=== PATIENT | male | born 1940 | race Hispanic/Latino ===

== ENCOUNTER 2017-12-21 13:53 | Emergency (ER) | payer BC ==
[2017-12-21] MEDS ORDERED: Sodium Chloride 0.9% 1,000 ML IV SCH (14:00)
[2017-12-21] MEDS ORDERED: Iodixanol 320 MG/ML 100 ML BOTTLE IV ONE (14:01)
[2017-12-21] MEDS ORDERED: Sodium Chloride 0.9% 50 ML IV ONE (14:01)
--- NOTE | 2017-12-21 14:02 | ED PDOC ---
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 As per coworker, patient stumbled into room, fell and hit desk. Patient denies headache, chest pain, shortness of breath, or any other medical complaints. He is not taking any blood thinners. PMD: Dr. Jorgensen NIHSS Stroke Scale - Date/Time Evaluation Performed Date Performed: 12/21/17 Time Performed: 14:00 When Was NIHSS Performed: Code Stroke - How Severe is the Stroke Level of Consciousness: 0=Alert LOC to Questions: 0=Both comments correct LOC to commands: 0=Obeys both correctly Best Gaze: 0=Normal Visual: 0=No visual loss Facial: 2=Partial (lower face paralysis) Motor Arm - Left: 2=Falls before 10 sec Motor Arm - Right: 0=No drift Motor Leg - Left: 2=Falls before 5 sec Motor Leg - Right: 0=No drift Limb Ataxia: 0=Absent Sensory: 0=Normal Best Language: 0=No aphasia Dysarthia: 1=Mild to moderate slurring Extinction & Inattention (Neglect): 0=Normal, no object Score: 7 NIHSS Stroke Scale 2 - Date/Time Evaluation Performed Date Performed: 12/21/17 Time Performed: 14:38 When Was NIHSS Performed: Re-evaluation - How Severe is the Stroke Level of Consciousness: 0=Alert LOC to Questions: 0=Both comments correct LOC to commands: 0=Obeys both correctly Best Gaze: 0=Normal Visual: 0=No visual loss Facial: 1=Minor asymmetry Motor Arm - Left: 1=Drift noted before 10 sec Motor Arm - Right: 0=No drift Motor Leg - Left: 1=Drift before 5 sec Motor Leg - Right: 0=No drift Limb Ataxia: 0=Absent Sensory: 0=Normal Best Language: 0=No aphasia Dysarthia: 1=Mild to moderate slurring Extinction & Inattention (Neglect): 0=Normal, no object Score: 4 NIHSS Stroke Scale 3 - Date/Time Evaluation Performed Date Performed: 12/21/17 Time Performed: 14:50 When Was NIHSS Performed: Re-evaluation - How Severe is the Stroke Level of Consciousness: 0=Alert LOC to Questions: 0=Both comments correct LOC to commands: 0=Obeys both correctly Best Gaze: 0=Normal Visual: 0=No visual loss Facial: 1=Minor asymmetry Motor Arm - Left: 0=No drift Motor Arm - Right: 0=No drift Motor Leg - Left: 0=No drift Motor Leg - Right: 0=No drift Limb Ataxia: 0=Absent Sensory: 0=Normal Best Language: 0=No aphasia Dysarthia: 1=Mild to moderate slurring Extinction & Inattention (Neglect): 0=Normal, no object Score: 2 rTPA Inclusion/Exclusion - Refusal of Treatment Patient Refused Treatment: No - Inclusion Criteria for Altepase Patient is 18 years or Older: Yes The Clinical Diagnosis of Ischemic Stroke That is Causing a Potentially Disabling Neurological Deficit: Yes Time of Onset is Well Established to be Less Than 270 Minute Before Treatment Would Begin: Yes Risk/Benefit Discussed With Patient/Family Member Present: Yes Past Medical History Reviewed: Historical Data, Nursing Documentation, Vital Signs - Medical History Other PMH: Thyroid disease - Surgical History Surgical History: No Surg Hx - Family History Family History: States: Unknown Family Hx - Social History Current smoker - smoking cessation education provided: No Ex-Smoker (has not smoked in the last 12 months): No - Home Medications Home Medications: Ambulatory Orders Medication Instructions Recorded Ergocalciferol (Vitamin D2) 50,000 unit PO WE 12/21/17 [Vitamin D2] Lactobacillus Combination No.8 1 cap PO DAILY 12/21/17 [Adult Probiotic] Levothyroxine [Synthroid] 50 mcg PO DAILY 12/21/17 - Allergies Allergies/Adverse Reactions: Allergies Allergy/AdvReac Type Severity Reaction Status Date / Time No Known Allergies Allergy Verified 12/21/17 13:59 Review of Systems ROS Statement: Except As Marked, All Systems Reviewed And Found Negative Neurological: Positive for: Weakness (left sided), Other (Left sided facial droop and dysarthria) Physical Exam - Reviewed Nursing Documentation Reviewed: Yes Vital Signs Reviewed: Yes - Physical Exam Appears: Positive for: Non-toxic, No Acute Distress Head Exam: Positive for: ATRAUMATIC, NORMOCEPHALIC Skin: Positive for: Normal Color, Warm, Dry Eye Exam: Positive for: EOMI, Normal appearance, PERRL Neck: Positive for: Normal, Painless ROM Cardiovascular/Chest: Positive for: Regular Rate, Rhythm. Negative for: Murmur Respiratory: Positive for: Normal Breath Sounds. Negative for: Respiratory Distress Gastrointestinal/Abdominal: Positive for: Normal Exam, Soft. Negative for: Tenderness Neurologic/Psych: Positive for: Alert, Oriented (x3), Motor/Sensory Deficits, Facial Droop (left sided), Other (dysarthria) - Laboratory Results Result Diagrams: 12/21/17 14:00 12/21/17 14:00 - Critical Care Total Time (In Min): 100 Medical Decision Making Medical Decision Making: Time: 13:54 --Code stroke Time: 14:00 --Case discussed neurologist character impersonator, Dr. Mckeon, who will call back with CT result. Time: 14:18 --Informed of CT results by radiologist. Time: 14:25 --Results discussed with Dr. Mckeon, TPA will be administered. All risks and benefits of TPA administration were discussed with patient and girlfriend in detail. All questions were answered. Patient consented to administration. Time: 14:38 --Notified Dr. Mckeon stroke scale went down from 7 to 5, still recommends TPA. Time: 14:50 --Third stroke scale was performed and now patient has a score of 2. Discussed with Dr. Mckeon, no TPA advised. Time: 15:15 --Called to bedside for return of facial droop and left sided weakness. Dr. Mckeon stayed to administer the TPA. Dr. Mckeon spoke to radiologist noted a clot seen on CTA. Time: 15:22 --TPA administered Time: 15:45 --Case discussed with Dr. Lassiter, interventional neurologist. Spoke with Dr. Palacios, ER doctor at [facility], about patients condition. Time: 16:15 --Patient is alert and oriented x3. He denies chest pain, abdominal pain, headache or any other medical complaints. Patient is being transferred to [facility] via EMS. Scribe Attestation: Documented by Mirtha Camarillo, acting as a scribe for Carmella Foster MD Provider Scribe Attestation: All medical record entries made by the Scribe were at my direction and personally dictated by me. I have reviewed the chart and agree that the record accurately reflects my personal performance of the history, physical exam, medical decision making, and the department course for this patient. I have also personally directed, reviewed, and agree with the discharge instructions and disposition. Disposition - Clinical Impression Clinical Impression: CVA (cerebral vascular accident) - Patient ED Disposition Is Patient to be Admitted: Transfer of Care - Disposition Disposition: Transfer of Care Disposition Time: 15:40 Condition: SERIOUS Forms: [facility] (Turkmen) - POA Core Measure Indicators: Code Stroke
[2017-12-21 14:23] VITALS: BMI 29.6
--- NOTE | 2017-12-21 14:30 | CT ---
PROCEDURE: CT HEAD WITHOUT CONTRAST. HISTORY: Code stroke. Left facial droop. COMPARISON: None available. TECHNIQUE: Axial computed tomography images were obtained through the head/brain without intravenous contrast. Extensive streak artifact from patient's earrings limits evaluation. Radiation dose: Total exam DLP = 825.0 mGy-cm. This CT exam was performed using one or more of the following dose reduction techniques: Automated exposure control, adjustment of the mA and/or kV according to patient size, and/or use of iterative reconstruction technique. FINDINGS: HEMORRHAGE: No intracranial hemorrhage. BRAIN: Patchy and confluent hypodensities throughout the bilateral cerebral hemispheric white matter are most likely from chronic small vessel ischemic changes. Area of hypodensity in the right parietal lobe could represent underlying microvascular changes. However, acute infarct cannot be excluded. Similar area of hyperdensity seen in the left parietal lobe. No acute territorial infarct identified. VENTRICLES: Unremarkable. No hydrocephalus. CALVARIUM: Unremarkable. PARANASAL SINUSES: Unremarkable as visualized. No significant inflammatory changes. MASTOID AIR CELLS: Unremarkable as visualized. No inflammatory changes. OTHER FINDINGS: Symmetric hyperdense cerebral arteries. Vascular calcifications. IMPRESSION: Suboptimal evaluation due to extensive streak artifact from patient's earrings. No CT evidence of acute intracranial hemorrhage. Acute infarction may be CT occult within first 24 hours. Hypodense areas in bilateral parietal lobes could represent ischemic areas. If a focal deficit persists, consider followup CT or MRI for further evaluation. Notified by technologist at 2:[address] Swift at 2:18 p.m. on 12/21/2017.
[2017-12-21 14:45] LABS: BASO % 0.5 % (0.0-2.0); EOS # 0.1 K/uL (0.0-0.7); EOS % 2.4 % (0.0-4.0); HEMOGLOBIN 15.5 g/dL (12.0-18.0); LYMPH % 18.6 % (20.0-40.0); MEAN CELL VOLUME 95.7 fl (80.0-94.0); MEAN CORPUSCULAR HEMOGLOBIN 32.4 pg (27.0-31.0); MEAN CORPUSCULAR HGB CONC 33.9 g/dL (33.0-37.0); MEAN PLATELET VOLUME 8.8 fl (7.2-11.7); MONO # 0.5 K/uL (0.0-0.8); MONO % 8.7 % (0.0-10.0); NEUT # 3.7 K/uL (1.8-7.0); NEUT % 69.8 % (50.0-75.0); NRBC % 0.2 % (0.0-0.0); RBC 4.77 Mil/uL (4.40-5.90); RED CELL DISTRIBUTION WIDTH 14.1 % (11.5-14.5); WHITE BLOOD COUNT 5.3 K/uL (4.8-10.8)
--- NOTE | 2017-12-21 14:54 | RAD ---
HISTORY: Code Stroke COMPARISON: No prior. FINDINGS: LUNGS: Hazy opacity in the right lung hilum. Vascular congestion. Bibasilar atelectatic changes. It is low. PLEURA: No significant pleural effusion identified, no pneumothorax apparent.Biapical pleural parenchymal thickening noted. CARDIOVASCULAR: Normal. OSSEOUS STRUCTURES: No significant abnormalities. VISUALIZED UPPER ABDOMEN: Upper abdomen is suboptimally evaluated. OTHER FINDINGS: None. IMPRESSION: Mild vascular congestion. Bibasilar atelectatic changes.
[2017-12-21 14:57] LABS: PARTIAL THROMBOPLASTIN TIME 29.3 Seconds (25.6-37.1); PROTHROMBIN TIME 10.9 Seconds (9.8-13.1)
[2017-12-21 14:58] LABS: ALB/GLOB RATIO 1.3 (1.0-2.1); ALT/SGPT 37 U/L (21-72); AST/SGOT 40 U/L (17-59); BLOOD UREA NITROGEN 17 mg/dl (9-20); CALCIUM 9.4 mg/dL (8.4-10.2); GFR AFRICAN-AMERICAN > 60; GFR NON-AFRICAN AMERICAN > 60; HDL CHOLESTEROL 38 MG/DL (30-70)
[2017-12-21 15:10] LABS: LDL CHOLESTEROL 117 mg/dL (0-129)
--- NOTE | 2017-12-21 15:27 | CT ---
PROCEDURE: CTA HEAD AND NECK WITH CONTRAST HISTORY: CVA COMPARISON: None available. TECHNIQUE: Initial noncontrast head CT was performed. Subsequently, CT angiogram of the head and neck were performed after the intravenous administration of 80 mL of Omnipaque 350. Contiguous 1.5mm thick images were obtained in the axial plane of the neck. 2-D coronal and sagittal MPR images were obtained. Imaging postprocessing was performed with 3-D images also obtained. A delayed contrast head CT was also obtained. This CT exam was performed using one or more of the following dose reduction techniques: Automated exposure control, adjustment of the mA and/or kV according to patient size, and/or use of iterative reconstruction technique. Contrast dose: 99 cc Visipaque 320 Radiation dose: Total exam DLP = mGy-cm. FINDINGS: HEAD: Right: The intracranial internal carotid artery and anterior cerebral arteries are widely patent. There is early bifurcation of the right M1 segment and an apparent filling defect and irregularity in the superior deviation at its origin with attenuation of the superior sylvian branches. Left: The intracranial internal carotid artery, and anterior and middle cerebral arteries are widely patent. Posterior circulation: The visualized intracranial vertebral arteries, basilar artery and posterior cerebral arteries are widely patent. There is origin of the right posterior cerebral artery, an anatomic variant. There is no intracranial saccular aneurysm. NECK: There is a three vessel aortic arch. There is no stenosis at the origins of the great vessels at the level of the aortic arch. There are advanced atherosclerotic calcifications in the carotid bulbs without evidence for hemodynamically significant stenosis. Right Carotid: On the right, the common carotid, internal carotid and external carotid arteries are widely patent. There is no hemodynamically significant stenosis in the internal carotid artery by NASCET criteria. Left Carotid: On the left, the common carotid, internal carotid and external carotid arteries are widely patent.There is no hemodynamically significant stenosis in the internal carotid artery by NASCET criteria. The right vertebral artery is widely patent. The left vertebral artery is hypoplastic, there is absent flow in the V1 segment and a vertebral artery origin is not visualized. The visualized soft tissues of the neck are normal. The visualized brain and cervical spine are within normal limits. The lung apices are clear. IMPRESSION: 1. Apparent filling defect in the superior division of the right M2 segment at its origin with associated irregularity concerning for small intraluminal thrombus. Asymmetric decreased flow in the superior sylvian branches. 2. No evidence of occlusion or hemodynamically significant stenosis in the internal carotid arteries by NASCET criteria. 3. Suspect occlusion of the left V1 segment at its origin. The V2, V3 and V4 segments are patent. The left vertebral artery is hypoplastic which could be an anatomic variant or related to severe underline atherosclerosis. Important findings were discussed with Neurologist Osmel Mckeon on 12/21/2017 at 3:15 p.m.
[2017-12-21 16:19] VITALS: TEMP 98; O2SAT 100
[2017-12-21 16:28] VITALS: BP 168/79; PULSE 81; RESP 14
--- NOTE | 2017-12-24 16:42 | CARD ---
APPROVED REPORT Date of service: 12/21/2017 EKG Measurement Heart [id number] <Conclusion> Sinus rhythm with occasional premature ventricular complexes Left anterior fascicular block Septal infarct, age undetermined Abnormal ECG
== END 2017-12-21 16:23 | disposition short-term general hospital (02) ==
LOC: H.ER 13:53
DX: I63.9 Cerebral infarction, unspecified (principal); E07.9 Disorder of thyroid, unspecified; R29.810 Facial weakness; Z87.891 Personal history of nicotine dependence
CPT/HCPCS: 70450; 70496; 70498; 71045; 80053; 80061; 82948; 84443; 84484; 85025; 85610; 85730; 86850; 86900; 92526; 92610; 99285; G8996; G8997; G8998; J2997; J7030; Q9967

== ENCOUNTER 2018-09-14 11:58 | Emergency (ER) | payer BC, MEDICARE ==
[2018-09-14 11:59] VITALS: BMI 29.6
[2018-09-14 12:29] VITALS: TEMP 98.6
[2018-09-14] MEDS ORDERED: Tdap Vaccine 0.5 ml Vial (10-64 yrs) IM ONE ×2 (12:38→12:44)
--- NOTE | 2018-09-14 12:44 | ED PDOC ---
HPI: Head Injury Time Seen by Provider: 09/14/18 12:14 Chief Complaint (Nursing): Trauma Chief Complaint (Provider): Fall, trauma History Per: Patient History/Exam Limitations: no limitations Injury Occurred (Timing): Days Ago: (1) Patient States: Fell Striking Head Additional History Per: Patient Additional Complaint(s): 78yo male, with history of CVA and currently on Plavix and Eliquis, comes to ER accompanied by daughter, stating that 9pm yesterday when he was walking outside, he tripped over the curb and fell, landing on his face. He denies loss of consciousness at that time and reports cuts to his face. He initially did not think his injuries were serious, but was concerned due to left eyelid swelling. Patient reports he has been unable to stop bleeding form the wound on his nose. Patient otherwise denies any nausea, vomiting, and per daughter, he has no alteration in behavior. No complaints of neck pain, chest pain, abdominal pain, shortness of breath or extremity pain. No additional complaints. PMD: Dr. Jorgensen Child Protective Investigator: Dr. Garcia Past Medical History Reviewed: Historical Data, Nursing Documentation, Vital Signs Vital Signs: Last Vital Signs Temp 98.6 F 09/14/18 12:20 Pulse 118 H 09/14/18 12:20 Resp 20 09/14/18 12:20 BP 152/77 H 09/14/18 12:20 Pulse Ox 99 09/14/18 12:20 - Medical History PMH: CVA (no residual weakness) - Surgical History Other surgeries: brain surgery due to CVA - Family History Family History: States: No Known Family Hx - Living Arrangements Living Arrangements: With Family - Home Medications Home Medications: Ambulatory Orders Medication Instructions Recorded Ergocalciferol (Vitamin D2) 50,000 unit PO WE 12/21/17 [Vitamin D2] Levothyroxine [Synthroid] 50 mcg PO DAILY 12/21/17 Apixaban [Eliquis] 5 mg PO Q12 09/14/18 Atorvastatin [Lipitor] 80 mg PO HS 09/14/18 Clopidogrel [Plavix] 75 mg PO DAILY 09/14/18 Enalapril Maleate [Vasotec] 10 mg PO DAILY 09/14/18 Metoprolol Tartrate 25 mg PO DAILY #7 tablet 09/14/18 - Allergies Allergies/Adverse Reactions: Allergies Allergy/AdvReac Type Severity Reaction Status Date / Time No Known Allergies Allergy Verified 09/14/18 12:20 Review of Systems ROS Statement: Except As Marked, All Systems Reviewed And Found Negative Constitutional: Negative for: Fever, Chills Eyes: Positive for: Eyelid Inflammation (left). Negative for: Vision Change Gastrointestinal: Negative for: Nausea, Vomiting Musculoskeletal: Negative for: Neck Pain, Arm Pain, Leg Pain Skin: Positive for: Other (cuts on face) Neurological: Negative for: Weakness, Numbness, Altered Mental Status Physical Exam - Reviewed Nursing Documentation Reviewed: Yes Vital Signs Reviewed: Yes - Physical Exam Appears: Positive for: Non-toxic Head Exam: Positive for: NORMOCEPHALIC. Negative for: ATRAUMATIC (+ superficial abrasion to left forehead) Skin: Positive for: Warm, Dry Eye Exam: Positive for: EOMI (normal upward gaze as well), PERRL (no hyphema), Periorbital swelling (left), Periorbital tenderness (left) ENT: Positive for: Normal ENT Inspection, TM Is/Are (clear bilaterally; no hemotympanum), Other (nose with superficial abrasion, no laceration, (+) non-pul satile active bleeding, tenderness to palpation and swelling. No septal hematoma noted bilaterally. (+) minimal swelling to left lower lip.) Neck: Positive for: Normal (c-spine nontender), Painless ROM, Supple Cardiovascular/Chest: Positive for: Regular Rate, Rhythm. Negative for: Chest Non Tender ((+) tenderness to right lower anterior chest wall, (+) ecchymosis noted.), Tachycardia Respiratory: Positive for: Normal Breath Sounds. Negative for: Wheezing, Respiratory Distress Gastrointestinal/Abdominal: Positive for: Normal Exam, Soft, Other (no subcostal tenderness). Negative for: Tenderness, Mass, Guarding, Rebound Back: Positive for: Normal Inspection. Negative for: L CVA Tenderness, R CVA Tenderness, Vertebral Tenderness, Decreased ROM, Muscle Spasm Extremity: Positive for: Normal ROM. Negative for: Pedal Edema, Deformity Neurological/Psych: Positive for: Awake, Alert, Normal Tone, Symmetric/Intact Strength (5/5 strength ), Oriented (x 3), Gait (steady unassisted). Negative for: Motor/Sensory Deficits, Facial Droop - Laboratory Results Result Diagrams: 09/14/18 12:43 09/14/18 12:43 - ECG ECG: Positive for: Interpreted By Me ECG Rhythm: Positive for: Atrial Fibrillation. Negative for: ST/T Changes Rate: 123 O2 Sat by Pulse Oximetry: 99 (RA) Pulse Ox Interpretation: Normal Medical Decision Making Medical Decision Makinyo male with multiple injuries due to fall Currently taking blood thinners Plan: -- Labs -- EKG -- Urinalysis -- Adacel 0.5mg IM -- CT head -- CT C-spine -- CT maxillofacial -- CT Chest, abdomen, pelvis 1540 CT C-Spine IMPRESSION: No fracture or spondylolisthesis appreciable. Degenerative disc and facet as well as uncovertebral joint change are identified causing variable neural foraminal and central canal stenoses. No severe central stenosis throughout. CT maxillofacial IMPRESSION: Extensive left greater than right facial subcutaneous hematoma and edema predominantly at the left preseptal periorbital soft tissue extending to the left cheek and temporal frontal/scalp. No retained radiodense foreign body or e mphysema soft tissue change. No postseptal findings. No fracture identified. CT Chest IMPRESSION: No acute cardiopulmonary changes grossly evident. Chronic interstitial pulmonary disease appears mild and basilar predominant. No mass or significant lymphadenopathy. No fracture, pleural or pericardial effusion identified. Dilated ascending thoracic aorta up to 4.[address] Abdomen/Pelvis IMPRESSION: No acute findings in the abdomen or pelvis. Specifically, no evidence for acute injury or hemoperitoneum. No acute fracture. Mild enlargement of the prostate gland. Please correlate with PSA levels. CT Head IMPRESSION: Interval but chronic infarct right parietal lobe with no definite interval acute intracranial findings. Age-related neuro degenerative changes are reiterated. No fracture identified. [address] Garcia, patient's bar assistant who knows patient well, states 1 dose of metoprolol 5mg IV and can be discharged if heartrate normalized. Pt. is to be prescribed Metoprolol 25mg PO daily. 1800 child monitor: HR 81, BP: 141/72 Pt. in no distress. Gelfoam dressing placed over nose with hemostasis achieved. Pt. and family informed of all results and plan and all agree. Pt. with steady unassisted, gait. Advised to f/u with Dr. Jorgensen or Dr. Garcia for further evaluation but is to return to ED immediately if symptoms worsen. -------- --------- Scribe Attestation: Documented by Hollie Alonzo acting as a scribe for KARENA Bolanos Provider Scribe Attestation: All medical record entries made by the Scribe were at my direction and personally dictated by me. I have reviewed the chart and agree that the record accurately reflects my personal performance of the history, physical exam, medical decision making, and the department course for this patient. I have also personally directed, reviewed, and agree with the discharge instructions and d isposition. Disposition - Clinical Impression Clinical Impression: Facial contusion, Head injury, Rate controlled atrial fibrillation - Patient ED Disposition Is Patient to be Admitted: No - Disposition Referrals: Hu Garcia MD [Staff Provider] - Dallas Jorgensen MD [Staff Provider] - Disposition: Routine/Home Disposition Time: 18:07 Condition: IMPROVED Additional Instructions: FOLLOW UP WITH DR. GARCIA OR DR. JORGENSEN FOR FURTHER EVALUATION RETURN TO ED IMMEDIATELY IF SYMPTOMS WORSEN MEAGHAN JACKMAN, thank you for letting us take care of you today. Your provider was Isaiah Cummins MD and you were treated for FALL; FACE INJURY. The emergency medical care you received today was directed at your acute symptoms. If you were prescribed any medication, please fill it and take as directed. It may take several days for your symptoms to resolve. Return to the Emergency Department if your symptoms worsen, do not improve, or if you have any other problems. Please contact your doctor or call one of the physicians/clinics you have been referred to that are listed on the Patient Visit Information form that is included in your discharge packet. Bring any paperwork you were given at discharge with you along with any medications you are taking to your follow up visit. Our treatment cannot replace ongoing medical care by a primary care provider outside of the emergency department. Thank you for allowing the [facility] team to be part of your care today. If you had an X-Ray or CT scan: A Radiologist will review the ED reading if any change in treatment is needed we will contact you. If you had a blood, urine, or wound culture: It will take several days for the results, if any change in treatment is needed we will contact you. If you had an STI test: It will take 48 hours for the results. Please call after 1 week if you have not heard back. Prescriptions: Metoprolol Tartrate 25 mg PO DAILY #7 tablet Instructions: Atrial Fibrillation (DC), Closed Head Injury (DC) Forms: [employer] (Martiniquais) Print Language: SOUTH KOREAN
[2018-09-14 13:02] LABS: BASO # 0.1 K/uL (0.0-0.2); BASO % 0.6 % (0.0-2.0); EOS # 0.1 K/uL (0.0-0.7); HEMOGLOBIN 14.3 g/dL (12.0-18.0); LYMPH # 1.2 K/uL (1.0-4.3); LYMPH % 14.7 % (20.0-40.0); MEAN CELL VOLUME 95.2 fl (80.0-94.0); MEAN CORPUSCULAR HEMOGLOBIN 31.5 pg (27.0-31.0); MEAN CORPUSCULAR HGB CONC 33.1 g/dL (33.0-37.0); MEAN PLATELET VOLUME 8.8 fl (7.2-11.7); MONO # 0.7 K/uL (0.0-0.8); MONO % 8.3 % (0.0-10.0); NEUT # 6.4 K/uL (1.8-7.0); NEUT % 75.4 % (50.0-75.0); NRBC % 0.1 % (0.0-0.0); RBC 4.52 Mil/uL (4.40-5.90); RED CELL DISTRIBUTION WIDTH 15.5 % (11.5-14.5); WHITE BLOOD COUNT 8.5 K/uL (4.8-10.8)
[2018-09-14 13:06] LABS: INR 1.4; PROTHROMBIN TIME 15.7 Seconds (9.8-13.1)
[2018-09-14 13:08] LABS: PARTIAL THROMBOPLASTIN TIME 40.3 Seconds (25.6-37.1)
[2018-09-14 13:11] LABS: ALB/GLOB RATIO 1.3 (1.0-2.1); ALT/SGPT 53 U/L (21-72); AST/SGOT 53 U/L (17-59); BLOOD UREA NITROGEN 20 mg/dl (9-20); CALCIUM 9.2 mg/dL (8.4-10.2); GFR NON-AFRICAN AMERICAN > 60
[2018-09-14] MEDS ORDERED: Sodium Chloride 0.9% 50 ML IV ONE (14:26)
[2018-09-14] MEDS ORDERED: Iohexol 300 100 ML IJ ONE (14:26)
[2018-09-14 15:15] VITALS: RESP 18
--- NOTE | 2018-09-14 15:20 | CT ---
Date of service: 09/14/2018 PROCEDURE: CT HEAD WITHOUT CONTRAST. HISTORY: trauma COMPARISON: None available. TECHNIQUE: Axial computed tomography images were obtained through the head/brain without intravenous contrast. Radiation dose: Total exam DLP = 836.3 mGy-cm. This CT exam was performed using one or more of the following dose reduction techniques: Automated exposure control, adjustment of the mA and/or kV according to patient size, and/or use of iterative reconstruction technique. FINDINGS: HEMORRHAGE: No intracranial hemorrhage. BRAIN: An interval but chronic infarct now affects the mid to inferior right frontal lobe. No mass effect throughout. Diffuse cerebral atrophy chronic microangiopathy are reiterated and appear age-appropriate once again with posterior fossa contents grossly nonfocal including the brainstem. No suspicious extra-axial collection identified throughout. VENTRICLES: Unremarkable. No hydrocephalus. CALVARIUM: Unremarkable. PARANASAL SINUSES: Unremarkable as visualized. No significant inflammatory changes. MASTOID AIR CELLS: Unremarkable as visualized. No inflammatory changes. OTHER FINDINGS: Prominent left frontal and periorbital and paranasal soft tissue edema/hematoma appreciated. IMPRESSION: Interval but chronic infarct right parietal lobe with no definite interval acute intracranial findings. Age-related neuro degenerative changes are reiterated. No fracture identified.
--- NOTE | 2018-09-14 15:28 | CT ---
Date of service: 09/14/2018 PROCEDURE: CT MAXILLOFACIAL BONES WITHOUT CONTRAST HISTORY: trauma COMPARISON: None available. TECHNIQUE: Contiguous axial CT images of the maxillofacial bones were obtained. Coronal and sagittal reformats were generated. Radiation dose: Total exam DLP = 836.12 mGy-cm. This CT exam was performed using one or more of the following dose reduction techniques: Automated exposure control, adjustment of the mA and/or kV according to patient size, and/or use of iterative reconstruction technique. FINDINGS: NASAL BONES: Unremarkable. ORBITS: There is subcutaneous hematoma appreciated in the left periorbital preseptal soft tissue extending across the nasal bridge in into the medial right periorbital subcutaneous soft tissue as well. The postseptal space is appear intact and unremarkable bilaterally. Reactive changes are prominent at the left temporoparietal scalp as well as hematoma extending cephalad into the left frontal scalp without retained radiodense foreign body or emphysematous soft tissue changes related. No facial fracture appreciated including the bilateral orbits. PARANASAL SINUSES/ MASTOIDS: Limited bilateral ethmoid mucosal inflammatory change identified. Rightward bony nasal septal deviation identified. MAXILLA: Unremarkable. MANDIBLE/ TEMPOROMANDIBULAR JOINTS: Unremarkable. SKULL BASE: Unremarkable. TEMPORAL BONES: Middle ears and mastoid grossly unremarkable. OTHER FINDINGS: Advanced multilevel mid to inferior cervical spondylosis with Tong C1 to degenerative joint changes present. IMPRESSION: Extensive left greater than right facial subcutaneous hematoma and edema predominantly at the left preseptal periorbital soft tissue extending to the left cheek and temporal frontal/scalp. No retained radiodense foreign body or emphysema soft tissue change. No postseptal findings. No fracture identified.
--- NOTE | 2018-09-14 15:30 | CARD ---
APPROVED REPORT Date of service: 09/14/2018 EKG Measurement Heart [id number] <Conclusion> Atrial fibrillation with rapid ventricular response Left axis deviation Septal infarct, age undetermined Abnormal ECG
--- NOTE | 2018-09-14 15:44 | CT ---
Date of service: 09/14/2018 PROCEDURE: CT Cervical Spine without contrast HISTORY: trauma COMPARISON: None available. TECHNIQUE: Axial computed tomography images were obtained of the cervical spine without the use of intravenous contrast. Coronal and sagittal reformatted images were created and reviewed. Radiation dose: Total exam DLP = 417.9 mGy-cm. This CT exam was performed using one or more of the following dose reduction techniques: Automated exposure control, adjustment of the mA and/or kV according to patient size, and/or use of iterative reconstruction technique. FINDINGS: VERTEBRAE: No fracture. Straightened cervical curvature without spondylolisthesis. No destructive bony lesion appreciable. No destructive bony lesion. DISCS/SPINAL CANAL/NEURAL FORAMINA: Mildly prominent spondylosis seen at C5-6 and C6-7 and there is [id number] C7-T1. Degenerative changes seen the C1-2 articulation with the craniocervical junction intact. No central canal or neural foraminal stenosis appreciated throughout the C3-4 and C4-5 levels although there is a severe right neural foraminal stenosis on degenerative basis at the C3-4 level due to uncovertebral and facet arthropathy. Mild similar stenosis seen at the left C3-4 neural foramen with none at C4-5 bilaterally. No bony central stenosis C4-5. At C5-6, a circumferential osteophytic ridge is identified resulting in mild central stenosis contributions of osteophytes from the uncovertebral and facet joints bilaterally result in severe right but only mild left neural foraminal stenosis. An irregular disc osteophyte complex results in [id number] central canal stenosis at C6-7 with moderate degenerative neural foraminal stenoses identified bilaterally. At C7-T1, irregular disc osteophyte complex is encountered but without significant central canal or neural foraminal stenosis bilaterally. PARASPINAL SOFT TISSUES: Unremarkable. OTHER FINDINGS: Azygous fissure medial right apex. IMPRESSION: No fracture or spondylolisthesis appreciable. Degenerative disc and facet as well as uncovertebral joint change are identified causing variable neural foraminal and central canal stenoses. No severe central stenosis throughout.
--- NOTE | 2018-09-14 15:49 | CT ---
Date of service: 09/14/2018 PROCEDURE: CT Abdomen and Pelvis with contrast HISTORY: trauma COMPARISON: Eight erick status are TECHNIQUE: CT scan of the abdomen and pelvis was performed after administration of intravenous contrast. Oral contrast was not administered. Coronal and sagittal reformatted images were obtained. Contrast dose: Radiation dose: Total exam DLP = 642.28 mGy-cm. This CT exam was performed using one or more of the following dose reduction techniques: Automated exposure control, adjustment of the mA and/or kV according to patient size, and/or use of iterative reconstruction technique. FINDINGS: LOWER THORAX: The visualized lungs are clear. There is mild cardiomegaly. LIVER: Normal in size with homogeneous enhancement. Fatty liver. No gross lesion or ductal dilatation. GALLBLADDER AND BILE DUCTS: Well distended. No calcified gallstones, wall thickening or pericholecystic fluid. PANCREAS: Normal in size with homogeneous enhancement. No gross lesion or ductal dilatation. SPLEEN: Normal in size and appearance. ADRENALS: No discrete nodule. KIDNEYS AND URETERS: Normal in size with homogeneous enhancement. No hydronephrosis. No solid mass. VASCULATURE: No aortic aneurysm. There are aortic atherosclerotic calcifications and mural plaque present. BOWEL: Evaluation of the bowel is limited in the absence of oral contrast. The small bowel loops are normal in caliber. The colon is grossly normal in appearance. No bowel wall thickening or obstruction. APPENDIX: Normal appendix. PERITONEUM: No free fluid. No free air. LYMPH NODES: No enlarged lymph nodes. BLADDER: Well distended and normal in appearance. REPRODUCTIVE: Mild enlargement of the prostate gland with central coarse calcifications. BONES: No acute fracture. Advanced multilevel degenerative disc disease in the lower thoracic and lumbar spine. OTHER FINDINGS: None. IMPRESSION: No acute findings in the abdomen or pelvis. Specifically, no evidence for acute injury or hemoperitoneum. No acute fracture. Mild enlargement of the prostate gland. Please correlate with PSA levels.
--- NOTE | 2018-09-14 15:52 | CT ---
Date of service: 09/14/2018 PROCEDURE: CT Chest without contrast HISTORY: trauma COMPARISON: None available. TECHNIQUE: Contiguous axial images were obtained through the chest without intravenous contrast enhancement. Sagittal and coronal reconstructions were performed. Radiation dose: Total exam DLP = 437.86 mGy-cm. This CT exam was performed using one or more of the following dose reduction techniques: Automated exposure control, adjustment of the mA and/or kV according to patient size, and/or use of iterative reconstruction technique. FINDINGS: LUNGS: No acute infiltrates bilaterally. Peripheral fibrotic change are appreciated predominate the bases compatible with chronic interstitial pulmonary disease though mild severity. Central airways are clear. No definitive pulmonary mass appreciable bilaterally. 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 MEDIASTINUM: The thoracic inlet appears unremarkable. The thoracic aorta is borderline dilated at 3 0.9 cm at the distal ascending segment with the aortic root normal caliber. Normal caliber seen throughout the remainder. Mild cardiomegaly. Prominent coronary artery partially calcified atherosclerosis. Main pulmonary artery unremarkable. No vascular congestion. No significant lymphadenopathy. Calcific atherosclerotic changes are seen related to the thoracic aorta. PLEURA: No pleural fluid. No pneumothorax. BONES: No fracture. No destructive lesion. UPPER ABDOMEN: See separate abdomen pelvis CT exam also performed 09/14/2018. OTHER FINDINGS: None. IMPRESSION: No acute cardiopulmonary changes grossly evident. Chronic interstitial pulmonary disease appears mild and basilar predominant. No mass or significant lymphadenopathy. No fracture, pleural or pericardial effusion identified. Dilated ascending thoracic aorta up to 4.0 cm greatest dimension.
[2018-09-14] MEDS ORDERED: Metoprolol 1 mg/ml Inj IVP STA (17:01)
[2018-09-14] MEDS ORDERED: Absorbable Gelatin Sponge Size 12-7 TP ONE (17:07)
[2018-09-14 17:12] LABS: SQUAMOUS EPITHIAL < 1 /hpf (0-5); URINE BILIRUBIN NEGATIVE (NEGATIVE); URINE BLOOD NEGATIVE (NEGATIVE); URINE CLARITY CLEAR (Clear); URINE COLOR YELLOW (YELLOW); URINE GLUCOSE (UA) NEG (NEGATIVE); URINE LEUKOCYTE ESTERASE NEG Leu/uL (Negative); URINE PROTEIN NEGATIVE (NEGATIVE); URINE UROBILINOGEN 0.2-1.0 mg/dL (0.2-1.0)
[2018-09-14] MEDS ORDERED: Metoprolol 1 mg/ml Inj ONE (17:14)
[2018-09-14] MEDS ORDERED: Absorbable Gelatin Sponge Size 12-7 ONE (17:15)
[2018-09-14 17:16] VITALS: BP 144/89
[2018-09-14 18:09] VITALS: O2SAT 99
[2018-09-14 19:40] VITALS: PULSE 123
== END 2018-09-14 18:46 | disposition home or self-care (01) ==
LOC: H.ER 11:58
DX: S00.83XA Contusion of other part of head, initial encounter (principal); S09.90XA Unspecified injury of head, initial encounter; W01.0XXA Fall on same level from slipping, tripping and stumbling without subsequent striking against object, initial encounter; Y92.89 Other specified places as the place of occurrence of the external cause; N40.0 Benign prostatic hyperplasia without lower urinary tract symptoms; I48.91 Unspecified atrial fibrillation; Z79.01 Long term (current) use of anticoagulants; Z79.02 Long term (current) use of antithrombotics/antiplatelets; Z86.73 Personal history of transient ischemic attack (TIA), and cerebral infarction without residual deficits
CPT/HCPCS: 70450; 70486; 71250; 72125; 74177; 80053; 81003; 82948; 84484; 85025; 85610; 85730; 86850; 86900; 90471; 90715; 93005; 96374; 99285; Q9967